=== PATIENT | male | born 1990 | race Caucasian/White ===

== ENCOUNTER 2023-07-27 02:05 | Emergency (ER) | payer OTHER ==
[~2023-07-27] VITALS: Ht 180.3 cm; Wt 81.7 kg
[2023-07-27 03:12] LABS: Influenza A, PCR NEGATIVE (NEGATIVE); Influenza B, PCR NEGATIVE (NEGATIVE); SARS-Cov-2 (COVID-19) PCR, MMC NEGATIVE (NEGATIVE)
[2023-07-27 03:37] LABS: Resp Syncytial Virus, PCR POSITIVE (NEGATIVE)
[2023-07-27] MEDS ORDERED: BENZ100A PO (05:29)
[2023-07-27 05:44] VITALS: BP 113/85
== END 2023-07-27 05:45 | disposition home or self-care (01) ==
LOC: ER 02:05
PROVIDERS: Emergency Medicine
DX: J98.8 Other specified respiratory disorders (principal); B97.89 Other viral agents as the cause of diseases classified elsewhere; Z20.828 Contact with and (suspected) exposure to other viral communicable diseases
CPT/HCPCS: 0241U; 99283; A9270

== ENCOUNTER 2024-05-11 07:31 | Day surgery (SDC) | payer OTHER ==
[~2024-05-11] VITALS: Ht 180.3 cm; Wt 88.2 kg
[~2024-05-11 07:31] MED LIST: BENZ100A PO; CYMBALTA30 M2 PO; HYDHCL25 PO; Ropivacaine 0.5% HCL/PF 5 MG/ML 30ML Vial ONE
[2024-05-11] MEDS ORDERED: CeFAZolin Sodium 2,000 MG VIAL ONE (07:51)
[2024-05-11] MEDS ORDERED: NS 100 ML IV ONE (07:52)
[2024-05-11] MEDS ORDERED: Rocuronium Bromide 10 MG/ML 5ML Injection IV ONE (07:55)
[2024-05-11] MEDS ORDERED: propofoL 20 ML IV ONE (07:55)
[2024-05-11] MEDS ORDERED: FentaNYL Citrate 50 MCG/ML 2 ML Injection ONE ×2 (07:56→10:43)
[2024-05-11] MEDS ORDERED: Midazolam HCl 1MG / ML 2ML Vial ONE (07:56)
[2024-05-11] MEDS ORDERED: Lactated Ringer's 1,000 ML IV ONE ×2 (08:15→08:24)
[2024-05-11] MEDS ORDERED: Ondansetron HCl 2 MG / ML 2ML Vial ONE (08:38)
[2024-05-11] MEDS ORDERED: Dexamethasone Sod Phos 10 MG/ML 1ML VIAL ONE (08:38)
[2024-05-11] MEDS ORDERED: Ketorolac Tromethamine 30mg Vial ONE (08:38)
[2024-05-11] MEDS ORDERED: Sugammadex Sodium 200 MG/2ML SDV (100 MG/ML) ONE (08:39)
[2024-05-11] MEDS ORDERED: EPINEPhrine HCl 1 MG/ML 1ML Amp XX ONE ×2 (08:53)
--- NOTE | 2024-05-11 09:17 | NUR ---
05/11/24 0917 Radha Krause 30ML OF ROPIVACAINE 0.5% MIXED AND VERIFIED WITH 0.15ML OF EPI (1MG/ML) TO MAKE ROPIVACAINE 0.5% WITH EPI 1:200,000 FOR INJECTION AT THE OPSITE.
[2024-05-11 10:29] VITALS: BP 122/92
--- NOTE | 2024-05-11 11:16 | NUR ---
05/11/24 1116 Rosy Kruger PT DRANK CRANBERRY JUICE WITHOUT N/V. HAD 25 MCG OF FENTANTYL FOR LEFT COAVICLE PAIN. WAS DOWN TO A MANAGEABLE LEVEL AFTER RECEIVING IT.
== END 2024-05-11 11:08 | disposition home or self-care (01) ==
LOC: ORSCSDS 07:31
PROVIDERS: Orthopaedic Surgery
PROC: 0PSB04Z Reposition Left Clavicle with Internal Fixation Device, Open Approach (ICD-10-PCS; principal; 2024-05-11 08:45)
DX: S42.025K Nondisplaced fracture of shaft of left clavicle, subsequent encounter for fracture with nonunion (principal); F17.210 Nicotine dependence, cigarettes, uncomplicated
CPT/HCPCS: C1713; J0171; J0690; J1100; J1885; J2250; J2405; J2704; J2795; J3010; J7120